=== PATIENT | female | born 1990 | race Caucasian/White ===

== ENCOUNTER 2019-09-23 10:32 | Emergency (ER) | payer OTHER, MEDICAID ==
[~2019-09-23] VITALS: Ht 152.4 cm; Wt 59.9 kg
[2019-09-23 10:32] VITALS: BP_SYST 128
[2019-09-23 13:24] VITALS: BP_SYST 124
== END 2019-09-23 13:25 | disposition home or self-care (01) ==
LOC: SED 10:32
DX: J11.1 Influenza due to unidentified influenza virus with other respiratory manifestations (principal)
CPT/HCPCS: 71046-TC; 81002; 81025; 99283